=== PATIENT | male | born 1965 | race Caucasian/White ===

== ENCOUNTER 2020-08-22 11:09 | Outpatient (REF) | payer OTHER, SELFPAY ==
--- NOTE | 2020-08-22 11:16 | XR_ITS ---
EXAMINATION: XR CHEST CLINICAL INFORMATION: Unspecified pain. COMPARISON: None TECHNIQUE: 2 views of the chest were obtained. FINDINGS: No significant abnormality is noted involving the heart, lungs, mediastinum, bony thorax or soft tissues. XR/XR chest 2V IMPRESSION: No acute cardiopulmonary process.
== END 2020-08-22 11:10 | disposition home or self-care (01) ==
LOC: HO.XRAY 11:09
PROVIDERS: PCP Internal Medicine; Visit Provider Internal Medicine
DX: R10.9 Unspecified abdominal pain (principal)
CPT/HCPCS: 71046

== ENCOUNTER 2020-09-03 08:04 | Outpatient (REF) | payer OTHER, SELFPAY ==
--- NOTE | ~2020-09-03 | US_ITS ---
EXAMINATION: US ABDOMEN COMPLETE CLINICAL INFORMATION: Abdominal pain. COMPARISON: None TECHNIQUE: Real-time imaging of the abdominal viscera. FINDINGS: PANCREAS: Not well visualized due to bowel gas ABDOMINAL AORTA: The proximal, mid, and distal segments are normal in caliber. INFERIOR VENA CAVA: Visualized portions are normal. LIVER: Normal. The liver is normal in size. The liver contour is normal. Parenchymal echogenicity is normal. No focal hepatic lesion. There is no intrahepatic biliary duct dilatation seen. GALLBLADDER: Surgically absent. COMMON BILE DUCT: Normal in caliber measuring 0.6 cm in diameter. RIGHT KIDNEY: There are 2 cysts measuring 4.9 x 6.3 x 5.4 cm and 1.4 x 1.7 x 1.8 cm in the lower pole. No hydronephrosis or renal calculi. The kidney measures 13.7 cm in maximum dimension. LEFT KIDNEY: Normal. No hydronephrosis. No renal calculi or focal parenchymal lesions. The kidney measures 12.4 cm in maximum dimension. SPLEEN: Normal. The spleen measures 11.1 cm in maximum dimension. FREE FLUID: None. US/US abdomen complete IMPRESSION: Right renal cysts. Limited visualization of the pancreas.
== END 2020-09-03 08:05 | disposition home or self-care (01) ==
LOC: HO.US 08:04
PROVIDERS: PCP Internal Medicine; Visit Provider Internal Medicine
DX: R10.9 Unspecified abdominal pain (principal)
CPT/HCPCS: 76700

== ENCOUNTER 2021-10-07 09:04 | Outpatient (REF) | payer OTHER, SELFPAY ==
[2021-10-07 09:33] LABS: MANUAL DIFF FLAG NO
[2021-10-07 09:42] LABS: Basophils Percent Auto 0.3 % (0-2); Eosinophils Absolute Auto 0.2 X10*3/uL (0.0-0.4); Eosinophils Percent Auto 1.8 % (0-4); Hematocrit 47.4 % (42.0-52.0); Hemoglobin 16.1 g/dl (14.0-18.0); Imm Gran Abs Auto 0.05 X10*3/uL (0.00-0.03); Imm Gran Pct Auto 0.5 % (0.0-0.4); Lymphocytes Absolute Auto 2.8 X10*3/uL (1.2-4.9); Lymphocytes Percent Auto 29.5 % (20-40); Mean Corpuscular Hemoglobin 30.3 pg (27.0-33.0); Mean Corpuscular Volume 89.1 fL (80.0-98.0); Mean Platelet Volume 9.1 fL (9.4-12.4); Monocytes Absolute Auto 0.7 X10*3/uL (0.1-1.2); Monocytes Percent Auto 6.9 % (2-11); Neutrophils Absolute Auto 5.7 x10*3/uL (2.0-8.3); Platelet Count 353 X10*3/uL (160-400); Red Blood Count 5.32 X10*6/uL (4.60-5.80); Red Cell Distribution Width 12.7 % (11.0-16.0); White Blood Count 9.4 X10*3/uL (4.8-10.8)
[2021-10-07 10:11] LABS: Alanine Aminotransferase 30 U/L (0-40); Albumin Level 4.2 g/dL (3.5-5.0); Alkaline Phosphatase 72 U/L (39-117); Anion Gap 13 (12-20); Aspartate Amino Transferase 18 U/L (5-37); Bilirubin Total 0.6 mg/dL (0.0-1.0); Blood Urea Nitrogen 10 mg/dL (9-16); Calcium 10.1 mg/dL (8.4-10.2); Carbon Dioxide 25 mmol/L (22-29); Chloride 104 mmol/L (96-108); Cholesterol 184 mg/dL; Estimated Glomerular Filt Rate > 60; Glucose Fasting 97 mg/dL (60-99); HDL Cholesterol 33 mg/dL; LDL Cholesterol Calculated 121 mg/dl; Potassium 4.4 mmol/L (3.3-5.1); Sodium 138 mmol/L (135-145); Total Protein 7.2 g/dL (6.5-8.0); Triglycerides 150 mg/dL
[2021-10-07 10:35] LABS: Thyroid Stimulating Hormone 1.04 uIU/mL (0.32-4.0)
== END 2021-10-07 09:05 | disposition home or self-care (01) ==
LOC: HO.LAB 09:04
PROVIDERS: PCP Internal Medicine; Visit Provider Internal Medicine
DX: Z00.00 Encounter for general adult medical examination without abnormal findings (principal); Z13.0 Encounter for screening for diseases of the blood and blood-forming organs and certain disorders involving the immune mechanism
CPT/HCPCS: 36415; 80053; 80061; 84443; 85025

== ENCOUNTER 2023-09-27 08:44 | Outpatient (AMB) | payer OTHER, SELFPAY ==
[2023-09-27 08:47] VITALS: BP 122/70; PULSE 75; O2SAT 99; BMI 34.7
--- NOTE | 2023-09-27 08:47 | MHC.PC.OV ---
Vital Signs 09/27/23 08:47 Height 6 ft 1 in Weight 263 lb BMI 34.7 BP 122/70 Blood Pressure Location Lt brachial Position Sitting Pulse 75 Pulse Source Pulse Oximeter Pulse Oximetry (%) 99 Oxygen Delivery Method Room Air Intake Visit Reasons: PE Senior Energy Consultant Required: No Chemical Operator: Not Required per policy Accompanied by: Self / Same As Patient Allergies No Known Allergies Allergy (Verified 09/27/23 08:48) Medication List - Last Reconciled 09/27/23 by Chris Gilliam MD No Known Home Meds Tobacco use date assessed: 09/27/23 Dental Screening Dental Screen Date: 09/27/23 Did you have a dental visit in the last 12 months?: Yes Did you have a dental problem in the last 6 months where you did not have access to dental care?: No Was dental information given to patient?: Patient has dentist HPI PE HPI Details healthy [facility] Medical History (Updated 05/31/22 @ 14:57 by Chris Gilliam MD) Obesity Surgical History History of cholecystectomy Family History (Updated 09/27/23 @ 08:49 by Nicholas Taylor Rita) Father Medical history unknown Mother Breast cancer Son No problems noted. Son No problems noted. Daughter No problems noted. Daughter No problems noted. Social History Housing: House Alcohol intake: never Patient Tobacco Use Status: Never used Tobacco e-Cigarette/Vaping Use: Never Used Second Hand Smoke Exposure: No service: No Current occupational status: employed Cognitive needs: No Hearing needs: No Vision needs: No Questionnaire PHQ-9 Over the last 2 weeks, how often have you been bothered by any of the following problems? 1. Little interest or pleasure in doing things: not at all 2. Feeling down, depressed, or hopeless: not at all 3. Trouble falling or staying asleep, or sleeping too much: not at all 4. Feeling tired or having little energy: not at all 5. Poor appetite or overeating: not at all 6. Feeling bad about yourself - or that you are a failure or have let yourself or your family down: not at all 7. Trouble concentrating on things, such as reading the newspaper or watching television: not at all 8. Moving or speaking so slowly that other people could have noticed. Or the opposite - being so fidgety or restless that you have been moving around a lot more than usual: not at all 9. Thoughts that you would be better off or of hurting yourself in some way: not at all Total score: 0 Depression Screening Interpretation: Negative Depression Screening Done: Yes Source: Developed by Drs. Jm Rizo, Sheri Davis, Khari Holly and colleagues, with an educational justyna from [employer]. Thrive Questionnaire Date Thrive assessed: 09/27/23 I am a: Patient What is your living situation today?: I have a steady place to live Within the past 12 months, did the food you bought not last and you didn't have the money to get more?: Never true Within the past 12 months, did you worry whether your food would run out before you got money to buy more?: Never true Do you have trouble paying for medicines?: No Do you have trouble getting transportation to medical appointments?: No Do you have trouble paying your heating and electricity bill?: No Do you have trouble taking care of your child, family member or friend?: No Do you have trouble with day-to-day activities such as bathing, preparing meals, shopping, managing finances, etc.?: No Are you currently unemployed and looking for a job?: No Are you interested in more education?: No Please select the resources that you would like help with: None THRIVE Score: 0 AUDIT C Alcohol Use Questionnaire (AUDIT-C) 1. How often do you have a drink containing alcohol?: Monthly or less 2. How many drinks containing alcohol do you have on a typical day when you are drinking?: 1 or 2 3. How often do you have six or more drinks on one occasion?: Never Total Score: 1 Score Reviewed/Action Taken: Yes MIKAYLA-7 AMB Questionnaire MIKAYLA-7 Date MIKAYLA - 7 assessed: 09/27/23 Feeling nervous, anxious, or on edge: 0 = Not at all Not being able to stop or control worryin = Not at all Worrying too much about different things: 0 = Not at all Trouble relaxin = Not at all Being so restless that it is hard to sit still: 0 = Not at all Becoming easily annoyed or irritable: 0 = Not at all Feeling afraid as if something awful might happen: 0 = Not at all Total MIKAYLA-7 score (0-4 normal; 5-9 mild; 10-14 moderate; 15-21 severe): 0 Source: Developed by Drs. Jm Rizo, Sheri Davis, Khari Holly and colleagues, with an educational justyna from [employer]. MIKAYLA-7 Assessment Billing MIKAYLA-7 Assessment Tool: MIKAYLA-7 Assessment 20194 Review of Systems Const Denies chills, Denies fatigue, Denies headache(s) and Denies weight loss Eyes Denies change in vision, Denies diplopia and Denies eye pain ENT Denies vertigo, Denies dizziness, Denies headache(s) and Denies nasal discharge Card Denies chest pain, Denies rapid heart rate and Denies dyspnea on exertion Resp Denies chest congestion, Denies cough, Denies pain with cough and Denies dyspnea on exertion GI Denies abdominal pain, Denies hematochezia and Denies change in bowel habits Musc Denies myalgias, Denies arthralgias and Denies joint swelling Skin/Breast Denies lesions and Denies unusual bruising Neuro Denies vertigo, Denies dizziness, Denies headache(s) and Denies focal weakness Endo Denies fatigue Physical exam (Primary Care) Vital Signs: Last Vital Signs Pulse 75 09/27/23 08:47 BP 122/70 09/27/23 08:47 Pulse Ox 99 09/27/23 08:47 Oxygen Delivery Method Room Air 09/27/23 08:47 BMI result Body Mass Index 34.7 Tobacco/Smoking Status: Tobacco use Status Tobacco use date assessed 09/27/23 09/27/23 08:49 Patient Tobacco Use Status Never used Tobacco 09/27/23 08:49 e-Cigarette/Vaping Use Never Used 09/27/23 08:49 PHQ-9: PHQ-9 Score PHQ-9: Total score 0 09/27/23 08:49 Depression Screening Interpretation: Negative Thrive Assessment: Date of Thrive Assessment Date Thrive assessed 09/27/23 09/27/23 08:49 Const General: cooperative, healthy appearing and no acute distress Orientation/consciousness: oriented to person, oriented to place and oriented to time HENMT Head: Yes normal to inspection, Yes normocephalic and Yes atraumatic Mouth: Normal oral and palatal mucosa present and tongue normal Throat: Yes posterior oropharynx normal and Yes uvula midline Eyes General: appearance normal, both eyes and all related structures Neck Neck: Yes normal visual inspection, Yes full ROM and Yes no lymphadenopathy Thyroid: Thyroid normal Carotids: normal carotid upstroke Chest Chest palpation & inspection: normal inspection of the chest Resp Effort & Inspection: normal respiratory effort and able to speak in complete sentences Auscultation: clear to auscultation bilaterally Cardio Jugular venous distension: no JVD Palpation: normal PMI Rate: regular rate Rhythm: regular rhythm Heart sounds: S1 normal heart sound present and S2 normal heart sound present GI Inspection: Yes normal to inspection Palpation (GI): Soft to palpation and No hepatosplenomegaly present Auscultation: normal bowel sounds General: Yes no CVA tenderness Back/Spine/Pelvis Back: no CVA tenderness Skin General skin exam: no rashes or lesions noted Neuro General: oriented to person, oriented to place and oriented to time Extrem General: Yes normal to inspection and Yes full ROM Assessment and Plan Assessment & Plan (1) Physical exam: Code(s): Z00.00 - Encounter for general adult medical examination without abnormal findings Plan: labs and colonoscopy ref Orders: Orders Comprehensive [place]. Panel Fast Today N28.9 - Disorder of kidney and ureter, unspecified Complete Blood Count Auto Diff Today D64.9 - Anemia, unspecified Prostate Specific Antigen Scr Today Z00.00 - Encounter for general adult medical examination without abnormal findings Lipid Panel Today E78.5 - Hyperlipidemia, unspecified Thyroid Stimulating Hormone Today E03.9 - Hypothyroidism, unspecified Referrals Gastroenterology Referral Z12.11 - Encounter for screening for malignant neoplasm of colon Coding Level of Care Code Est Pt Prev Care 40-64y(37154) Diagnoses Physical exam Z00.00 Additional Codes PHQ-9 - 49467 - PHQ-9 Billing: ([id number]) MIKAYLA-7 Assessment Billing - MIKAYLA-7 Assessment Tool: MIKAYLA-7 Assessment 82950 ([id number])
== END 2023-09-27 09:18 | disposition home or self-care (01) ==
PROVIDERS: Visit Provider Internal Medicine
DX: Z00.00 Encounter for general adult medical examination without abnormal findings (principal)
CPT/HCPCS: 99396

== ENCOUNTER 2023-10-10 08:51 | Outpatient (REF) | payer OTHER, SELFPAY ==
[2023-10-10 09:21] LABS: MANUAL DIFF FLAG NO
[2023-10-10 09:50] LABS: Basophils Percent Auto 0.4 % (0-2); Eosinophils Absolute Auto 0.2 X10*3/uL (0.0-0.4); Eosinophils Percent Auto 2.4 % (0-4); Hematocrit 46.5 % (42.0-52.0); Hemoglobin 15.9 g/dl (14.0-18.0); Imm Gran Abs Auto 0.02 X10*3/uL (0.00-0.03); Imm Gran Pct Auto 0.2 % (0.0-0.4); Lymphocytes Absolute Auto 2.3 X10*3/uL (1.2-4.9); Lymphocytes Percent Auto 28.1 % (20-40); Mean Corpuscular HGB Conc 34.2 g/dl (31.0-36.0); Mean Corpuscular Hemoglobin 30.1 pg (27.0-33.0); Mean Corpuscular Volume 87.9 fL (80.0-98.0); Mean Platelet Volume 9.2 fL (9.4-12.4); Monocytes Absolute Auto 0.6 X10*3/uL (0.1-1.2); Monocytes Percent Auto 6.8 % (2-11); Neutrophils Absolute Auto 5.1 x10*3/uL (2.0-8.3); Neutrophils Percent Auto 62.1 % (45-73); Platelet Count 343 X10*3/uL (160-400); Red Blood Count 5.29 X10*6/uL (4.60-5.80); Red Cell Distribution Width 12.7 % (11.0-16.0); White Blood Count 8.2 X10*3/uL (4.8-10.8)
[2023-10-10 10:44] LABS: Alanine Aminotransferase 26 U/L (0-40); Albumin Level 4.1 g/dL (3.5-5.0); Alkaline Phosphatase 68 U/L (39-117); Anion Gap 12 (12-20); Aspartate Amino Transferase 23 U/L (5-37); Bilirubin Total 0.6 mg/dL (0.0-1.0); Blood Urea Nitrogen 12 mg/dL (9-16); Calcium 9.6 mg/dL (8.4-10.2); Carbon Dioxide 29 mmol/L (22-29); Chloride 105 mmol/L (96-108); Cholesterol 172 mg/dL (<200); Estimated Glomerular Filt Rate > 60; Glucose Fasting 103 mg/dL (60-99); HDL Cholesterol 36 mg/dL (>40); LDL Cholesterol Calculated 110 mg/dL (<100); Potassium 4.3 mmol/L (3.3-5.1); Sodium 142 mmol/L (135-145); Total Protein 7.2 g/dL (6.5-8.0); Triglycerides 131 mg/dL (<150)
[2023-10-10 10:54] LABS: Prostate Specific Antigen Scr 0.36 ng/mL (<0.05-4.0)
[2023-10-10 10:58] LABS: Thyroid Stimulating Hormone 0.89 uIU/mL (0.32-4.0)
== END 2023-10-10 08:52 | disposition home or self-care (01) ==
LOC: HO.LAB 08:51
PROVIDERS: PCP Internal Medicine; Visit Provider Internal Medicine
DX: Z00.00 Encounter for general adult medical examination without abnormal findings (principal); Z12.5 Encounter for screening for malignant neoplasm of prostate; D64.9 Anemia, unspecified; E78.5 Hyperlipidemia, unspecified; E03.9 Hypothyroidism, unspecified; N28.9 Disorder of kidney and ureter, unspecified
CPT/HCPCS: 36415; 80053; 80061; 84153; 84443; 85025

== ENCOUNTER 2024-09-28 08:49 | Outpatient (AMB) | payer OTHER, SELFPAY ==
--- NOTE | 2024-09-28 08:54 | MHC.PC.OV ---
Vital Signs 09/28/24 08:56 Height 6 ft 1 in Weight 267 lb 8 oz BMI 35.3 BP 120/62 Blood Pressure Location Lt brachial Position Sitting Pulse 97 Pulse Source Pulse Oximeter Temp 97.3 F Temp Source Temporal Artery Scan Pulse Oximetry (%) 95 Oxygen Delivery Method Room Air Intake Visit Reasons: Annual Exam Intake Note: Patient is here today for a physical. Syrup Maker Required: No Arborist Representative: Not Required per policy Accompanied by: Self / Same As Patient Allergies No Known Allergies Allergy (Verified 09/28/24 08:55) Tobacco use date assessed: 09/28/24 Dental Screening Dental Screen Date: 09/28/24 Did you have a dental visit in the last 12 months?: No Did you have a dental problem in the last 6 months where you did not have access to dental care?: No Was dental information given to patient?: Patient has dentist HPI Annual Exam HPI Details healthy; no meds; congested cough PFSH Medical History (Updated 02/27/24 @ 14:38 by LILY Gonzalez) Obesity Surgical History H/O colonoscopy History of cholecystectomy Family History Father Medical history unknown Mother Breast cancer Son No problems noted. Son No problems noted. Daughter No problems noted. Daughter No problems noted. Social History Housing: House Alcohol intake: never Patient Tobacco Use Status: Never used Tobacco e-Cigarette/Vaping Use: Never Used Second Hand Smoke Exposure: No service: No Current occupational status: employed Cognitive needs: No Hearing needs: No Vision needs: No Questionnaire PHQ-9 Over the last 2 weeks, how often have you been bothered by any of the following problems? 1. Little interest or pleasure in doing things: not at all 2. Feeling down, depressed, or hopeless: not at all 3. Trouble falling or staying asleep, or sleeping too much: not at all 4. Feeling tired or having little energy: not at all 5. Poor appetite or overeating: not at all 6. Feeling bad about yourself - or that you are a failure or have let yourself or your family down: not at all 7. Trouble concentrating on things, such as reading the newspaper or watching television: not at all 8. Moving or speaking so slowly that other people could have noticed. Or the opposite - being so fidgety or restless that you have been moving around a lot more than usual: not at all 9. Thoughts that you would be better off or of hurting yourself in some way: not at all Total score: 0 Depression Screening Interpretation: Negative Depression Screening Done: Yes Source: Developed by Drs. Jm Rizo, Sheri Davis, Khari Holly and colleagues, with an educational justyna from [employer] Thrive Questionnaire Date Thrive assessed: 09/25/24 I am a: Patient What is your living situation today?: I have a steady place to live Within the past 12 months, did the food you bought not last and you didn't have the money to get more?: Never true Within the past 12 months, did you worry whether your food would run out before you got money to buy more?: Never true Do you have trouble paying for medicines?: No Do you have trouble getting transportation to medical appointments?: No Do you have trouble paying your heating and electricity bill?: No Do you have trouble taking care of your child, family member or friend?: No Do you have trouble with day-to-day activities such as bathing, preparing meals, shopping, managing finances, etc.?: No Are you currently unemployed and looking for a job?: No Are you interested in more education?: No Please select the resources that you would like help with: None Currently or been in a relationship where the following occur: No concerns reported THRIVE Score: 0 AUDIT C Alcohol Use Questionnaire (AUDIT-C) 1. How often do you have a drink containing alcohol?: Never 2. How many drinks containing alcohol do you have on a typical day when you are drinking?: 1 or 2 3. How often do you have six or more drinks on one occasion?: Never Total Score: 0 MIKAYLA-7 AMB Questionnaire MIKAYLA-7 Date MIKAYLA - 7 assessed: 09/28/24 Feeling nervous, anxious, or on edge: 0 = Not at all Not being able to stop or control worryin = Not at all Worrying too much about different things: 0 = Not at all Trouble relaxin = Not at all Being so restless that it is hard to sit still: 0 = Not at all Becoming easily annoyed or irritable: 0 = Not at all Feeling afraid as if something awful might happen: 0 = Not at all Total MIKAYLA-7 score (0-4 normal; 5-9 mild; 10-14 moderate; 15-21 severe): 0 Source: Developed by Drs. Jm Rizo, Sheri Davis, Khari Holly and colleagues, with an educational justyna from [employer] Review of Systems Const Denies chills, Denies fatigue, Denies headache(s) and Denies weight loss Eyes Denies change in vision, Denies diplopia and Denies eye pain ENT Denies vertigo, Denies dizziness, Denies headache(s) and Denies nasal discharge Card Denies chest pain, Denies rapid heart rate and Denies dyspnea on exertion Resp Denies chest congestion, Denies cough, Denies pain with cough and Denies dyspnea on exertion GI Denies abdominal pain, Denies hematochezia and Denies change in bowel habits Musc Denies myalgias, Denies arthralgias and Denies joint swelling Skin/Breast Denies lesions and Denies unusual bruising Neuro Denies vertigo, Denies dizziness, Denies headache(s) and Denies focal weakness Endo Denies fatigue Physical exam (Primary Care) Vital Signs: Last Vital Signs Temp 97.3 F 09/28/24 08:56 Pulse 97 09/28/24 08:56 BP 120/62 09/28/24 08:56 Pulse Ox 95 09/28/24 08:56 Oxygen Delivery Method Room Air 09/28/24 08:56 BMI result Body Mass Index 35.3 Tobacco/Smoking Status: Tobacco use Status Tobacco use date assessed 09/28/24 09/28/24 09:00 Patient Tobacco Use Status Never used Tobacco 09/28/24 09:00 e-Cigarette/Vaping Use Never Used 09/28/24 09:00 PHQ-9: PHQ-9 Score PHQ-9: Total score 0 09/28/24 09:00 Depression Screening Interpretation: Negative Thrive Assessment: Date of Thrive Assessment Date Thrive assessed 09/25/24 09/28/24 09:00 Currently or been in a relationship where the following occur: No concerns reported Const General: cooperative, healthy appearing and no acute distress Orientation/consciousness: oriented to person, oriented to place and oriented to time HENMT Head: Yes normal to inspection, Yes normocephalic and Yes atraumatic Mouth: Normal oral and palatal mucosa present and tongue normal Throat: Yes posterior oropharynx normal and Yes uvula midline Eyes General: appearance normal, both eyes and all related structures Neck Neck: Yes normal visual inspection, Yes full ROM and Yes no lymphadenopathy Thyroid: Thyroid normal Carotids: normal carotid upstroke Chest Chest palpation & inspection: normal inspection of the chest Resp Effort & Inspection: normal respiratory effort and able to speak in complete sentences Auscultation: clear to auscultation bilaterally Cardio Jugular venous distension: no JVD Palpation: normal PMI Rate: regular rate Rhythm: regular rhythm Heart sounds: S1 normal heart sound present and S2 normal heart sound present GI Inspection: Yes normal to inspection Palpation (GI): Soft to palpation and No hepatosplenomegaly present Auscultation: normal bowel sounds General: Yes no CVA tenderness Back/Spine/Pelvis Back: no CVA tenderness Skin General skin exam: no rashes or lesions noted Neuro General: oriented to person, oriented to place and oriented to time Extrem General: Yes normal to inspection and Yes full ROM Coding Level of Care Code Est Pt Prev Care 40-64y(65401) Diagnoses Physical exam Z00.00 Assessment & Plan Assessment & Plan (1) Physical exam: Code(s): Z00.00 - Encounter for general adult medical examination without abnormal findings Category: Medical Plan: stable; do labs Orders: Orders Lipid Panel Today Z13.220 - Encounter for screening for lipoid disorders Thyroid Stimulating Hormone Today Z13.29 - Encounter for screening for other suspected endocrine disorder Complete Blood Count Auto Diff Today Z13.0 - Encounter for screening for diseases of the blood and blood-forming organs and certain disorders involving the immune mechanism Comprehensive [place]. Panel Fast Today Z13.9 - Encounter for screening, unspecified ECG 12 lead EKG Today R07.9 - Chest pain, unspecified Medications: New azithromycin take 500 mg today (day 1), then 250 mg for 4 days (days 2-5) PO 6 tabs 0RF
[2024-09-28 08:56] VITALS: BP 120/62; PULSE 97; TEMP 36.3; O2SAT 95; BMI 35.3
--- OUTSIDE RECORDS SUMMARY | 2024-09-28 09:22 | XMS_ITS ---
Demographics Address [facility] [address] [place] [address] Mobile Email Address Preferred Language en Marital Status Yarsani Affiliation Unknown Race White Ethnic Group Not or Lati no Author Organization [facility] Address [address] [place] [address] Support Name Relationship Address Phone Sharon Luna Emergency Contact 07/[address] [place], [place] [phone] Isaac Luna Guarantor Unknown Care Team Providers Care Occ Therapy Asst Name Role Phone Mane PADGETT, Chris Primary Care Provider Unavaila Alicia Pyle [phone] Problems No Known Problems Encounters Encounter Location Date Provider Diagnosis [facility] [address] [place] [address] 09/01/2023 Alicia Pretty Plan Of Treatment No Information Progress Notes * Isaac LUNA GDOB:1965 (58 yo M)Acc No.[id number]:09/01/2023 Progress Notes Patient:?Isaac LUNA Provider:?Alicia Pretty DPM :1965???Age:57 Y???Sex:Male García e:09/01/2023 Address:[facility] [address] [place], [place] Pcp:Chris Gilliam MD Subjective: * Chief Complaints: * ??? * Medical History:? Objective: * Vitals:? Assessment: Plan: * Treatment: * Images: * The named appointment provid er may or may not be the originator of this progress note, and it is not deemed complete until electronically signed by the appointment provider. Sign off status: Pending * Provider:?Alicia Pretty DPM Date:?2023 Generated for Printi ng/Faxing/eTransmitting on:?09/28/2024 09:22 AM EST
--- OUTSIDE RECORDS SUMMARY | 2024-09-28 09:22 | XMS_ITS ---
Demographics Address [facility] [address] [place] [address] Mobile Email Address Preferred Language en Marital Status Gnosticism Affiliation Unknown Race White Ethnic Group Not or Lati no Author Organization [facility] Address [address] [place] [address] Support Name Relationship Address Phone Sharon Luna Emergency Contact 07/26 [address] [place], [place] [phone] Isaac Luna Guarantor Unknown [phone] Care Team Providers Care Sugar Grinder Name Role Phone Mane PADGETT, Chris Primary Care Provider Unavaila Alicia Pyle [phone] Problems No Known Problems Encounters Encounter Location Date Provider Diagnosis [facility] [address] [place] [address] 10/31/2023 lAicia Pretty Plan Of Treatment No Information Progress Notes * Isaac LUNA GDOB:1965 (58 yo M)Acc No.[id number]:10/31/2023 Progress Notes Patient:?Isaac LUNA Provider:?Alicia Pretty DPM :1965???Age:57 Y???Sex:Male García e:10/31/2023 Address:[facility] [address] [place], [place] Pcp:Chris Gilliam MD Subjective: * Chief Complaints: [...]
--- OUTSIDE RECORDS SUMMARY | 2024-09-28 09:22 | XMS_ITS ---
Demographics Address [facility] [place] [address] Mobile Email Address Preferred Language en Marital Status Holiness Affiliation Unknown Race White Ethnic Group Not or Lati no Author Organization [facility] Address [address] [place] [address] Support Name Relationship Address Phone Sharon Kong Emergency Contact [address] 07[address] [place], [place] [phone] Isaac Kong Guarantor Unknown Care Team Providers Care Wagon Driver Name Role Phone Chris Gilliam MD Primary Care Provider Unavaila ble Black, Alicia Unavailable [phone] REASON FOR VISIT no show 4/8 Problems No Known Problems Encounters Encounter Location Date Provider Diagnosis [facility] [address] [place] [address] 10/31/2023 Alicai Black Plan Of Treatment No Information Progress Notes * Isaac KONG GDOB:1965 (57 yo M)Acc No.[id number]:10/31/2023 Patient:?DilanIsaac :1965???Age:57 Y???Sex:Male Address:[address] [place], [address] * true * Date:? Generated for Printi ng/Janette/eTransmitting on:?09/28/2024 09:22 AM EST
--- OUTSIDE RECORDS SUMMARY | 2024-09-28 09:23 | XMS_ITS | Patient Health Record ---
Demographics Address [address] [place] [address] Mobile Email Address Preferred Language en Marital Status Samaritan Affiliation Unknown Race White Ethnic Group Not or Lati no [facility] [place] Address [address] [place] [place] [address] Support Name Relationship Address Phone Sharon Kong Emergency Contact [address] [place] [address] Dilan Isaac Guarantor Unknown Care Team Providers Care Laborer Yard Name Role Phone Chris Gilliam MD Primary Care Provider Unavaila ble Alicia Pretty Unavailable [phone] Allergies No Known Allergies Reason For Referral Diagnosis 1 Calcaneal spur, left foot (M77.32) Diagnosis 2 Achilles tendinitis, right leg (M76.61) Diagnosis 3 Achilles tendinitis, left leg (M76.62) Diagnosis 4 Calcaneal spur, righ t foot (M77.31) Diagnosis 5 Other myositis, righ t ankle and foot (M60.871) Diagnosis 6 Other myositis, left ankle and foot (M60.872) Diagnosis 7 Other bursitis, not elsewhere classified, right ankle and foot (M71.571) Diagnosis 8 Other bursitis, not elsewhere classified, left ankle and foot (M71.572) Diagnosis 9 Plantar fasciitis, b ilateral (M72.2) Diagnosis 10 Bursitis of right fo ot (M77.51) Diagnosis 11 Bursitis of left galina t (M77.52) Diagnosis 12 Pain in right foot ( M79.671) Diagnosis 13 Pain in left foot (M 79.672) Referring Provider First Name Chris Referring Provider Last Name Mane [facility] Referred Provider Alicia Pretty Referred Address [address] [facility] [address] ,[place], [place],[address], Referred Provider Specialty Podiatry Referral Priority Routine Medications Medication SIG (Take, Route, Frequency, Duration) Notes Start Date End Date Status Night Splint AFO - L1930 1 wear at rest for 30 days Active Feldene 20 MG 1 capsule with food Orally Once a day for 30 days 06/02/2023 Active Social History Tobacco Use: Social History Observation Description Date Details (start date - stop date) Never Smoker NA - NA Tobacco Use/Smoking Question Answer Notes Are you a: nonsmoker Additional Findings: Tobacco Non-User Current no n-smoker Alcohol Screen Question Answer Notes Did you have a drink containing alcohol in the p ast year? No Points 0 Interpretation Negative Tobacco use other than smoking: Question Answer Notes Are you an other tobacco user? No Problems No Known Problems Encounters Encounter Location Date Provider Diagnosis [facility] [address] [place] [address] 10/31/2023 Alicia Pretty Plan Of Treatment No Information Insurance Providers Payer Name Payer Address Payer Phone Subscriber Number Group Number Insured Name Patient Relationship to Insured Coverage Start Date Coverage End Date [place] [address] [place] [phone] [id number] Sharon Kong Spouse - patient is the spouse of the insured Medical (General) History Medical History History ICD Code Arthritis Broken bones Gall bladder problems Chicken pox Surgical History Surgery Date(Month/Year) cholecystectomy
== END 2024-09-28 09:24 | disposition home or self-care (01) ==
PROVIDERS: PCP Internal Medicine; Visit Provider Internal Medicine
DX: Z00.00 Encounter for general adult medical examination without abnormal findings (principal)

== ENCOUNTER → 2024-10-02 08:59 | Outpatient (REF) | payer OTHER, SELFPAY ==
--- NOTE | 2024-10-02 09:04 | ECG_ITS ---
Test Reason : chest pain Blood Pressure : */* mmHG Vent. Rate : 68 BPM Atrial Rate : 68 BPM P-R Int : 180 ms QRS Dur : 94 ms QT Int : 408 ms P-R-T Axes : 54 -28 10 degrees QTcB Int : 433 ms Normal sinus rhythm Normal ECG When compared with ECG of 25-Jun-2003 17:27, No significant change was found Referred By: Chris Gilliam Electronically Signed By: PATRICK STRICKLAND
[2024-10-02 09:23] LABS: MANUAL DIFF FLAG NO
[2024-10-02 09:45] LABS: Basophils Absolute Auto 0.1 X10*3/uL (0.0-0.2); Basophils Percent Auto 0.5 % (0-2); Eosinophils Absolute Auto 0.2 X10*3/uL (0.0-0.4); Eosinophils Percent Auto 2.1 % (0-4); Hematocrit 46.9 % (42.0-52.0); Hemoglobin 16.5 g/dl (14.0-18.0); Imm Gran Abs Auto 0.04 X10*3/uL (0.00-0.03); Imm Gran Pct Auto 0.4 % (0.0-0.4); Lymphocytes Absolute Auto 3.2 X10*3/uL (1.2-4.9); Lymphocytes Percent Auto 33.4 % (20-40); Mean Corpuscular HGB Conc 35.2 g/dl (31.0-36.0); Mean Corpuscular Hemoglobin 30.6 pg (27.0-33.0); Mean Platelet Volume 8.7 fL (9.4-12.4); Monocytes Absolute Auto 0.6 X10*3/uL (0.1-1.2); Monocytes Percent Auto 6.3 % (2-11); Neutrophils Absolute Auto 5.5 x10*3/uL (2.0-8.3); Neutrophils Percent Auto 57.3 % (45-73); Platelet Count 376 X10*3/uL (160-400); Red Blood Count 5.39 X10*6/uL (4.60-5.80); Red Cell Distribution Width 12.9 % (11.0-16.0); White Blood Count 9.6 X10*3/uL (4.8-10.8)
--- OUTSIDE RECORDS SUMMARY | 2024-10-02 09:53 | XMS_ITS ---
Demographics Address [facility] [address] [place] [address] Mobile Email Address Preferred Language en Marital Status Baptism Affiliation Unknown Race White Ethnic Group Not or Lati no Author Organization [facility] Address [address] [place] [address] Support Name Relationship Address Phone Sharon Luna Emergency Contact [address] [place], [place] [id number] Isaac Luna Guarantor Unknown Care Team Providers Care Selvage Machine Operator Name Role Phone Mane PADGETT, Chris Primary Care Provider Unavaila Alicia Pyle [phone] Problems No Known Problems Encounters Encounter Location Date Provider Diagnosis [facility] [address] [place] [address] 10/31/2023 Alicia Pretty Plan Of Treatment No Information Progress Notes * Isaac LUNA GDOB:1965 (58 yo M)Acc No.[id number]:10/31/2023 Progress Notes Patient:?Isaac LUNA Provider:?Alicia Pretty DPM :1965???Age:57 Y???Sex:Male García e:10/31/2023 Address:[facility] [address] [place], [place] Pcp:Chris Gilliam MD Subjective: * Chief Complaints: [...] Pretty DPM Date:?2023 Generated for Printi ng/Faxing/eTransmitting on:?10/02/2024 09:52 AM EDT
--- OUTSIDE RECORDS SUMMARY | 2024-10-02 09:53 | XMS_ITS ---
Demographics Address [facility] [place] [address] Mobile Email Address Preferred Language en Marital Status Sikh Affiliation Unknown Race White Ethnic Group Not or Lati no Author Organization [facility] Address [address] [place] [address] Support Name Relationship Address Phone Sharon Kong Emergency Contact [address] [place], [place] [phone] Isaac Kong Guarantor Unknown [phone] Care Team Providers Care Watch Dial Printer Name Role Phone Chris Gilliam MD Primary Care Provider Unavaila ble Black, Alicia Unavailable [phone] REASON FOR VISIT no show 4/8 Problems No Known Problems Encounters Encounter Location Date Provider Diagnosis [facility] [address] [place] [address] 10/31/2023 Alicia Black Plan Of Treatment No Information Progress Notes * Isaac KONG GDOB:1965 (57 yo M)Acc No.[id number]:10/31/2023 Patient:?Dilan Isaac G :1965???Age:57 Y???Sex:Male Address:[address] [place], [address] * true * Date:? Generated for Printi ng/Fatonnyg/eTransmitting on:?10/02/2024 09:52 AM EDT
--- OUTSIDE RECORDS SUMMARY | 2024-10-02 09:53 | XMS_ITS | Patient Health Record ---
Demographics Address [address] [place] [address] Mobile Email Address Preferred Language en Marital Status Evangelical Affiliation Unknown Race White Ethnic Group Not or Lati no [facility] [place] Address [address] [place] [address] Support Name Relationship Address Phone Sharon Kong Emergency Contact [address] [place] [address] Dilan Isaac Guarantor Unknown [phone] Care Team Providers Care Office Support Specialist Name Role Phone Chris Gilliam MD Primary Care Provider Unavaila ble Alicia Pretty Unavailable [phone] Allergies No Known Allergies Reason For Referral [...] Referring Provider Last Name Mane [facility] Referred Provider Alicia Pretty Referred Address [address] [facility] [address] ,[place], [place],[address], Referred Provider Specialty Podiatry Referral Priority Routine [...] Problems Encounters Encounter Location Date Provider Diagnosis [facility] [address] [place] [address] 10/31/2023 Alicia Pretty Plan Of Treatment No Information Insurance Providers Payer Name Payer Address Payer Phone Subscriber Number Group Number Insured Name Patient Relationship to Insured Coverage Start Date Coverage End Date [place] [address] [place] [phone] [id number] Sharon Kong Spouse - patient is the spouse of the insured Medical (General) History Medical History History ICD Code Arthritis Broken bones Gall bladder problems Chicken pox Surgical History Surgery Date(Month/Year) cholecystectomy
--- OUTSIDE RECORDS SUMMARY | 2024-10-02 09:53 | XMS_ITS ---
Demographics Address [facility] [address] [place] [address] Mobile Email Address Preferred Language en Marital Status Yarsani Affiliation Unknown Race White Ethnic Group Not or Lati no Author Organization [facility] Address [address] [place] [address] Support Name Relationship Address Phone Sharon Luna Emergency Contact [address] [place], [place] [id number] Isaac Luna Guarantor Unknown Care Team Providers Care Tooling Mechanic Name Role Phone Mane PADGETT, Chris Primary Care Provider Unavaila Alicia Pyle [phone] Problems No Known Problems Encounters Encounter Location Date Provider Diagnosis [facility] [address] [place] [address] 09/01/2023 Alicia Pretty Plan Of Treatment No Information Progress Notes * Isaac LUNA GDOB:1965 (58 yo M)Acc No.[id number]:09/01/2023 Progress Notes Patient:?Isaac LUNA Provider:?Alicia Pretty DPM :1965???Age:57 Y???Sex:Male García e:09/01/2023 Address:[facility] [address] [place], [place] Pcp:Chris Gilliam MD Subjective: * Chief Complaints: [...]
[2024-10-02 10:33] LABS: Alanine Aminotransferase 24 U/L (0-40); Albumin Level 4.2 g/dL (3.5-5.0); Alkaline Phosphatase 71 U/L (39-117); Anion Gap 9 (12-20); Aspartate Amino Transferase 20 U/L (5-37); Bilirubin Total 0.6 mg/dL (0.0-1.0); Blood Urea Nitrogen 9 mg/dL (9-16); Calcium 9.3 mg/dL (8.4-10.2); Carbon Dioxide 29 mmol/L (22-29); Chloride 108 mmol/L (96-108); Cholesterol 163 mg/dL (<200); Estimated Glomerular Filt Rate > 60; Glucose Fasting 98 mg/dL (60-99); HDL Cholesterol 33 mg/dL (>40); LDL Cholesterol Calculated 106 mg/dL (<100); Potassium 4.6 mmol/L (3.3-5.1); Sodium 141 mmol/L (135-145); Thyroid Stimulating Hormone 1.26 uIU/mL (0.32-4.0); Total Protein 7.8 g/dL (6.5-8.0); Triglycerides 124 mg/dL (<150)
== END ==
LOC: HO.CARD 08:59
PROVIDERS: PCP Internal Medicine; Visit Provider Internal Medicine
DX: Z13.29 Encounter for screening for other suspected endocrine disorder (principal); Z13.220 Encounter for screening for lipoid disorders; Z13.0 Encounter for screening for diseases of the blood and blood-forming organs and certain disorders involving the immune mechanism; R07.9 Chest pain, unspecified
CPT/HCPCS: 36415; 80053; 80061; 84443; 85025; 93005

== ENCOUNTER → 2024-10-02 09:04 | Outpatient (BNV) | payer OTHER, SELFPAY | PROVIDERS: PCP Internal Medicine; Visit Provider Internal Medicine | DX: R07.9 Chest pain, unspecified (principal) | CPT/HCPCS: 93010 ==